=== PATIENT | female | born 1990 | race Caucasian/White ===

== ENCOUNTER 2022-08-22 09:35 | Emergency (ER) | payer OTHER ==
[~2022-08-22] VITALS: Ht 160 cm; Wt 77.3 kg
[2022-08-22] MEDS ORDERED: HYDR-4808 PO (09:39)
[2022-08-22] MEDS ORDERED: SERT-158 PO (09:39)
[2022-08-22 10:01] LABS: COVID AG,FIA SOURCE NASAL SWAB
[2022-08-22 10:44] LABS: INFLUENZA TYPE A NEGATIVE FOR TYPE A (NEGATIVE); INFLUENZA TYPE B NEGATIVE FOR TYPE B (NEGATIVE)
[2022-08-22 11:01] LABS: RAPID GROUP A STREP POSITIVE (NEGATIVE)
[2022-08-22] MEDS ORDERED: HYDR-4527 PO (11:19)
[2022-08-22] MEDS ORDERED: DEXAMETHASONE SOD PHOS 4 MG/ML 5 ML VIAL IM ONE (11:30)
[2022-08-22] MEDS ORDERED: PENICILLIN G BENZATHINE LA 1,200,000 UNITS/2 ML SYRINGE IM ONE (11:30)
[2022-08-22 11:47] VITALS: BP 132/87
== END 2022-08-22 11:57 | disposition home or self-care (01) ==
LOC: EMS 09:35
DX: J02.0 Streptococcal pharyngitis (principal); F41.9 Anxiety disorder, unspecified; F32.A Depression, unspecified; Z90.49 Acquired absence of other specified parts of digestive tract; Z20.822 Contact with and (suspected) exposure to COVID-19
CPT/HCPCS: 99284; 87426; 87430; 87804; 96372; J0561; J1100